=== PATIENT | female | born 1955 | race Two or more races ===

== ENCOUNTER 2023-04-23 08:57 | Inpatient (IN) | payer OTHER, MEDICAID ==
[~2023-04-23] VITALS: Ht 157.5 cm; Wt 70.0 kg
[2023-04-23 10:08] LABS: Basophils # (auto) 0 10 ^3/uL (0-0.2); Basophils % (auto) 1.2 % (0.0-2.0); Eosinophils # (auto) 0 10 ^3/uL (0-0.8); Eosinophils % (auto) 0.5 % (0.0-7.0); Hematocrit 41.2 % (36.0-46.0); Hemoglobin 13.8 g/dL (12.2-16.2); Lymphocytes # (auto) 1.4 10 ^3/uL (0.4-5.4); Lymphocytes % (auto) 38.9 % (10.0-50.0); Mean Corpuscular Hemoglobin 29.8 pg (28.0-32.0); Mean Corpuscular Hgb Conc. 33.5 g/dL (32.0-36.0); Monocytes # (auto) 0.3 10 ^3/uL (0-1.3); Monocytes % (auto) 9.4 % (0.0-12.0); Neutrophils # (auto) 1.9 10 ^3/uL (1.6-8.6); Nucleated Red Blood Cells % 0.1 %; Red Blood Cells 4.63 10^6/uL (4.0-5.20); Red Cell Distribution Width 13.8 % (11.8-14.3); White Blood Cell 3.7 10^3/uL (4.4-10.8)
[2023-04-23 10:12] LABS: Urine Bacteria FEW /hpf (None Seen); Urine Blood TRACE /uL (Negative); Urine Clarity Clear (Clear); Urine Color Yellow (Yellow); Urine Mucus FEW (None Seen); Urine Protein, UAD Negative (Negative); Urine Specific Gravity 1.023 (1.001-1.035); Urine Urobilinogen Normal (Negative); Urine WBC 2 /hpf (0 - 5)
[2023-04-23 10:25] LABS: Alanine Aminotransferase 22 U/L (7-40); Albumin 4.4 g/dL (3.2-4.8); Alkaline Phosphatase 63 U/L (46-116); Anion Gap 6 (5-15); Aspartate Aminotransferase 19 U/L (13-40); BUN/Creatinine Ratio 27.4 (10.0-20.0); Bilirubin, Total 0.6 mg/dL (0.2-1.0); Blood Urea Nitrogen 17 mg/dL (9-23); Carbon Dioxide 27 mmol/L (20-30); Chloride 108 mmol/L (98-107); Glucose 109 mg/dL (74-106); Potassium 4.1 mmol/L (3.5-5.1); Sodium 141 mmol/L (136-145); Total Protein 6.6 g/dL (5.7-8.2)
[2023-04-23 10:34] LABS: INR 1.04 (0.9-1.15); Partial Thromboplastin Time 26.6 SEC (24.5-34.5); Prothrombin Time 10.9 sec (9.3-11.8)
[2023-04-23] MEDS ORDERED: cefTRIAXone 1GM/50ML D5W 50 ML IV ONE (11:15)
[2023-04-23 13:10] LABS: Phosphorus 3.5 mg/dL (2.4-5.1)
[2023-04-23] MEDS ORDERED: LORazepam 2MG/ML-1ML VIAL IV PRN (19:30)
[2023-04-23] MEDS: METOPROLOL TARTRATE 50 MG TAB PO SCH (22:00)
[2023-04-23 23:36] VITALS: PULSE 59; RESP 17; O2SAT 98
[2023-04-24] MEDS: ATORVASTATIN 20 MG TAB PO SCH ×2 (00:20→22:03)
[2023-04-24 05:00] VITALS: BP 110/62; PULSE 55; RESP 16; TEMP 97.6; O2SAT 98
[2023-04-24 08:00] VITALS: BP 113/68; PULSE 58; RESP 18; TEMP 97.5; O2SAT 95
[2023-04-24 08:06] LABS: RPR Non Reactive (Non Reactive)
[2023-04-24 08:20] VITALS: PULSE 66
[2023-04-24] MEDS: METOPROLOL TARTRATE 50 MG TAB PO SCH ×2 (10:00→22:00)
[2023-04-24] MEDS: ASPirin 81 mg TAB PO SCH (11:12)
[2023-04-24] MEDS: ACETAMINOPHEN 325 MG TAB PO PRN (11:35)
[2023-04-24] MEDS ORDERED: cefTRIAXone 1GM/50ML D5W 50 ML IV ONE (16:45)
[2023-04-24 17:00] VITALS: BP 144/82; PULSE 68; RESP 18; TEMP 98.4; O2SAT 96
[2023-04-24 20:00] VITALS: PULSE 51; PULSE 64; RESP 18; O2SAT 95
[2023-04-24 22:00] VITALS: BP 110/57; PULSE 51; RESP 15; TEMP 97.8; O2SAT 100
[2023-04-25 04:56] VITALS: BP 110/73; PULSE 56; RESP 16; TEMP 97.4; O2SAT 95
[2023-04-25 08:00] VITALS: PULSE 56; PULSE 74; RESP 18; O2SAT 94
[2023-04-25 08:30] VITALS: BP 116/69; PULSE 55; RESP 18; TEMP 97.6; O2SAT 94
[2023-04-25] MEDS ORDERED: cefTRIAXone 1GM/50ML D5W 50 ML IV SCH (09:00)
[2023-04-25] MEDS: METOPROLOL TARTRATE 50 MG TAB PO SCH (09:22)
[2023-04-25] MEDS: ASPirin 81 mg TAB PO SCH (09:22)
[2023-04-25] MEDS: ACETAMINOPHEN 325 MG TAB PO PRN (09:31)
[2023-04-25 12:15] VITALS: BP 135/80; PULSE 57; RESP 19; TEMP 97.8; O2SAT 95
[2023-04-25] MEDS ORDERED: CEPH500C PO (13:00)
[2023-04-25] MEDS ORDERED: IBUP-1310 PO (13:00)
[2023-04-25] MEDS ORDERED: SUMA50TA2 PO (13:00)
[2023-04-25] MEDS ORDERED: MET50T PO (13:00)
== END 2023-04-25 16:20 | disposition home or self-care (01) | DRG 305 ==
LOC: ER 08:57 → TELE 12:37 → TELE-WESTW 22:42
PROVIDERS: ADMIT Nurse Practitioner Family; ATTEND Nurse Practitioner Family
DX: I16.1 Hypertensive emergency (principal); N39.0 Urinary tract infection, site not specified; G45.9 Transient cerebral ischemic attack, unspecified; D72.819 Decreased white blood cell count, unspecified; E78.5 Hyperlipidemia, unspecified; R51.9 Headache, unspecified; I73.9 Peripheral vascular disease, unspecified; R26.89 Other abnormalities of gait and mobility; I10 Essential (primary) hypertension; H53.8 Other visual disturbances; E11.9 Type 2 diabetes mellitus without complications; Z82.49 Family history of ischemic heart disease and other diseases of the circulatory system; Z83.3 Family history of diabetes mellitus
CPT/HCPCS: 36415; 70450; 70551; 71045; 80053; 81001; 83735; 84100; 84443; 84484; 85025; 85610; 85730; 86592; 87086; 92610; 93005; 93306; 93886; 97116; 97163; 97530; G0378; J0696